=== PATIENT | female | born 1990 | race Caucasian/White ===

== ENCOUNTER 2022-08-19 11:45 | Emergency (ER) | payer OTHER, SELFPAY ==
--- NOTE | ~2022-08-19 | XR_ITS ---
EXAMINATION: XR chest 2V 08/19/2022 12:46 INDICATION: Cough, congestion and chills. PROCEDURE: 2 view chest COMPARISON: No prior studies for comparison. FINDINGS: The lungs are clear. The cardiomediastinal silhouette is within normal limits. There are no pleural effusions. There is no pneumothorax suspected. IMPRESSION: 1: NO ACUTE CARDIOPULMONARY DISEASE. Reviewed, dictated and finalized at location B.
[2022-08-19 11:57] VITALS: BP 139/85; PULSE 75; RESP 18; TEMP 35.8; O2SAT 98
[2022-08-19 11:58] VITALS: BP 139/85; PULSE 77; RESP 18; TEMP 35.8; O2SAT 98
--- NOTE | 2022-08-19 12:13 | PC.NURSE ---
LAB AND MOTHER AT BEDSIDE
--- NOTE | 2022-08-19 12:15 | ED.URI ---
HPI - URI/Sore Throat General Chief Complaint: Upper Respiratory Infection Stated Complaint: cough/sinus/ Time Seen by Provider: 08/19/22 11:48 Source: patient and RN notes reviewed Mode of arrival: ambulatory Limitations: no limitations History of Present Illness MD elicited complaint: cough Onset (ago): week(s) (2) Consistency: constant Severity: moderate Description of mucous: yellow Exacerbating factors: nothing Relieving factors: nothing Associated symptoms: shortness of breath Related Data Home Medications Medication Instructions Recorded Confirmed albuterol sulfate 90 mcg/actuation 2 puff inhalation PRN PRN Wheezing 08/19/22 08/19/22 aerosol inhaler alprazolam 0.5 mg tablet 0.5 mg PO TID PRN Anxiety 08/19/22 08/19/22 baclofen 10 mg tablet 10 mg PO BID 08/19/22 08/19/22 buprenorphine 8 mg-naloxone 2 mg 1 tablet sublingual TID 08/19/22 08/19/22 sublingual tablet ibuprofen 800 mg tablet 800 mg PO TID PRN Pain 08/19/22 08/19/22 potassium chloride 10 mEq 10 meq PO DAILY 08/19/22 08/19/22 capsule,extended release pregabalin 200 mg capsule 200 mg PO BID 08/19/22 08/19/22 Allergies Allergy/AdvReac Type Severity Reaction Status Date / Time amoxicillin [From Amoxil] Allergy Nausea and Verified 08/19/22 11:56 Vomiting erythromycin base Allergy Rash Verified 08/19/22 11:57 PMFSH Past Medical History Medical History (Updated 08/19/22 @ 13:04 by Sree Malin MD) Anxiety and depression Surgical History Surgical History (Updated 08/19/22 @ 12:17 by Sree Malin MD) History of carpal tunnel release Social History Social History (Updated 08/19/22 @ 12:19 by Sree Malin MD) Smoking packs per day: 1 Smoking cigarettes per day: 20.0 Smoking status: Current every day smoker Tobacco type: cigarettes Exam Const: General: healthy appearing, no acute distress and alert Nutritional Appearance: well nourished Orientation/consciousness: patient oriented x3 Limitations: no limitations Other: 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 HENMT: Head: normal to inspection Ears: external ears normal Eyes: Conjunctivae: conjunctivae normal Pupils: Equal, round and reactive pupils present EOM: EOMs intact bilaterally Neck: Neck: normal visual inspection Resp: Effort & Inspection: normal respiratory effort Auscultation: rhonchi throughout ( Scattered) and wheezes inspiratory wheezes ( mild scattered) Cardio: Rate: regular rate Rhythm: regular rhythm GI: GI Palp: Yes Soft to palpation and No Tenderness to palpation present (GI) Auscultation: normal bowel sounds Back/Spine/Pelvis: Cervical Spine: cervical ROM normal Thoracic/Lumbar Spine: thoraco-lumbar ROM normal Skin: General skin exam: normal color Rashes: no rashes Neuro: General: patient oriented x3, moves all extremities, no focal motor deficits and CN's II-XI intact bilaterally Speech: normal speech Gait exam (Neuro): Normal gait present Extrem: General: normal to inspection and no clubbing, cyanosis or edema Psych: Mental Status: mental status grossly normal Affect: normal affect Attitude: cooperative Course Vital Signs Vital signs: Vital Signs Temperature 35.8 C L 08/19/22 11:57 Pulse Rate 75 08/19/22 11:57 Respiratory Rate 18 08/19/22 11:57 Blood Pressure 139/85 08/19/22 11:57 Pulse Oximetry 98 08/19/22 11:57 Oxygen Delivery Room Air 08/19/22 11:57 Temperature 35.8 C L 08/19/22 11:58 Pulse Rate 77 08/19/22 11:58 Respiratory Rate 18 08/19/22 11:58 Blood Pressure 139/85 08/19/22 11:58 Pulse Oximetry 98 08/19/22 11:58 Oxygen Delivery Room Air 08/19/22 11:58 MDM - URI/Sore Throat Differential Diagnosis Differential diagnosis: Likely upper respiratory infection, viral infection and bronchitis Lab Data Attestation: I reviewed the patient's lab results. Discharge Plan Discharge Clinical Impression: Bronchitis Patient Disposition: Home, Self-Care Con
[2022-08-19 12:40] LABS: Basophils Absolute Auto 0.01 K/mm3 (0.00-0.10); Basophils Percent Auto 0.1 % (0.0-1.0); Eosinophils Absolute Auto 0.04 K/mm3 (0.02-0.50); Eosinophils Percent Auto 0.4 % (1.0-6.0); Hematocrit 38.3 % (35.0-49.0); Hemoglobin 12.5 g/dL (12.0-15.0); Immature Granulocyte Absolute 0.03 K/mm3 (0.00-0.00); Immature Granulocyte Percent A 0.3 % (0.0-0.0); Immature Platelet Fraction Pct 12.6 % (1.0-7.0); Lymphocytes Absolute Auto 1.71 K/mm3 (1.10-4.50); Lymphocytes Percent Auto 18.5 % (18.0-42.0); Mean Corpuscular HGB Conc 32.6 g/dL (32.0-36.0); Mean Corpuscular Volume 88.9 fL (78.0-102.0); Mean Platelet Volume 13.4 fl (9.2-11.8); Monocytes Absolute Auto 0.63 K/mm3 (0.10-0.90); Monocytes Percent Auto 6.8 % (2.0-11.0); Neutrophils Absolute Auto 6.8 K/mm3 (1.7-7.2); Neutrophils Percent Auto 73.9 % (50.0-70.0); Platelet Count Result 106 K/mm3 (150-420); Red Blood Count 4.31 M/mm3 (4.20-5.40); Red Cell Distribution Width 14.6 % (11.6-14.4); White Blood Count 9.2 K/mm3 (4.8-10.8)
[2022-08-19 12:55] LABS: Alanine Aminotransferase 25 U/L (14-59); Albumin Level 3.2 g/dL (3.4-5.0); Alkaline Phosphatase 56 U/L (46-116); Anion Gap 8 mmol/L (8-16); Aspartate Amino Transferase 21 U/L (15-37); Bilirubin,Total 0.3 mg/dL (0.00-1.00); Blood Urea Nitrogen 18 mg/dL (7-18); CRP 8.1 mg/dL (0.0-0.9); Calcium 8.7 mg/dL (8.5-10.1); Carbon Dioxide 25 mmol/L (21-32); Chloride 106 mmol/L (98-108); Estimated CRCL calculation 130 ml/min; Estimated Glomerular Filt Rate > 60; Glucose 130 mg/dL (70-99); Magnesium 1.9 mg/dL (1.8-2.4); Osmolality Calculated 291 mOsm/kg (285-295); Potassium 3.9 mmol/L (3.5-5.1); Sodium 139 mmol/L (136-145)
[2022-08-19 13:00] LABS: Lactic Acid Reflex 0.7 mmol/L (0.4-2.0)
[2022-08-19] MEDS: methylPREDNISolone SOD SUCC 125 MG VIAL IM (13:11)
[2022-08-19 13:12] VITALS: BP 130/77; PULSE 65; RESP 18; TEMP 36.2; O2SAT 99
--- NOTE | 2022-08-19 13:14 | PC.NURSE ---
ERP SPOKE WITH PT AND MOTHER. PT DENIES ANY NEEDS OR COMPLAINTS AT THIS TIME. PT TOLERATED INJECTION WITHOUT DIFFICULTY.
== END 2022-08-19 13:30 | disposition home or self-care (01) ==
PROVIDERS: Emergency Provider Emergency Medicine; PCP Family Medicine
DX: J40 Bronchitis, not specified as acute or chronic (principal)
CPT/HCPCS: 36415; 71046; 80053; 83605; 83735; 85025; 85055; 86140; 87040; 96372; 99283; J2930

== ENCOUNTER 2022-12-16 11:56 | Emergency (ER) | payer OTHER, SELFPAY ==
[2022-12-16 11:57] VITALS: BP 140/81; PULSE 77; RESP 16; TEMP 36.9; O2SAT 97
--- NOTE | 2022-12-16 11:58 | ED.DENTAL ---
HPI - Dental/Oral General Chief complaint: Dental/Oral Stated complaint: Tooth pain Time Seen by Provider: 12/16/22 11:58 Source: patient and RN notes reviewed Mode of arrival: ambulatory Limitations: no limitations History of Present Illness Complaint: tooth pain Location: Tooth # (17) Onset (ago): week(s) (3) Duration: intermittent Severity: moderate Relieving factors: nothing Exacerbating factors: chewing Context: history of dental caries Associated symptoms: other ( Pruritus no rash) Treatment prior to arrival: none Related Data Home Medications Medication Instructions Recorded Confirmed albuterol sulfate 90 mcg/actuation 2 puff inhalation PRN PRN Wheezing 08/19/22 12/16/22 aerosol inhaler alprazolam 0.5 mg tablet 0.5 mg PO TID PRN Anxiety 08/19/22 12/16/22 buprenorphine 8 mg-naloxone 2 mg 1 tablet sublingual TID 08/19/22 12/16/22 sublingual tablet ibuprofen 800 mg tablet 800 mg PO TID PRN Pain 08/19/22 12/16/22 pregabalin 200 mg capsule 200 mg PO BID 08/19/22 12/16/22 diclofenac sodium 50 mg 150 mg PO DAILY 12/16/22 12/16/22 tablet,delayed release prazosin 2 mg capsule 2 mg PO HS 12/16/22 12/16/22 Allergies Allergy/AdvReac Type Severity Reaction Status Date / Time amoxicillin [From Amoxil] Allergy Nausea and Verified 12/16/22 12:05 Vomiting erythromycin base Allergy Rash Verified 12/16/22 12:05 Review of Systems Review of Systems: All systems reviewed & are unremarkable except as noted in HPI and below PMFSH Past Medical History Medical History Anxiety and depression Surgical History Surgical History History of carpal tunnel release Social History Social History Smoking packs per day: 1 Smoking cigarettes per day: 20.0 Smoking status: Current every day smoker Tobacco type: cigarettes Exam Const: General: healthy appearing, no acute distress and alert Nutritional Appearance: well nourished Orientation/consciousness: patient oriented x3 Limitations: no limitations 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 HENMT: Head: normal to inspection Ears: external ears normal Face/Nose/Sinus: Normal external nose present Face and sinus: normal facial exam Mouth: Yes moist mucous membranes Teeth and gingiva: poor dentition Teeth image: 1. Evidence of cavity with surrounding tenderness mild erythema no significant swelling Throat: posterior oropharynx normal Eyes: Conjunctivae: conjunctivae normal Pupils: Equal, round and reactive pupils present EOM: EOMs intact bilaterally Neck: Neck: normal visual inspection Resp: Effort & Inspection: normal respiratory effort Auscultation: clear to auscultation bilaterally Cardio: Rate: regular rate Rhythm: regular rhythm GI: GI Palp: Yes Soft to palpation and Yes Tenderness to palpation present (GI) Auscultation: normal bowel sounds Back/Spine/Pelvis: Cervical Spine: cervical ROM normal Thoracic/Lumbar Spine: thoraco-lumbar ROM normal Skin: General skin exam: normal color Rashes: no rashes Neuro: General: patient oriented x3, moves all extremities, no focal motor deficits and CN's II-XI intact bilaterally Speech: normal speech Gait exam (Neuro): Normal gait present Extrem: General: normal to inspection and no clubbing, cyanosis or edema Psych: Mental Status: mental status grossly normal Affect: normal affect Attitude: cooperative Course Vital Signs Vital signs: Vital Signs Oxygen Delivery Room Air 12/16/22 11:56 Temperature 36.9 C 12/16/22 11:57 Pulse Rate 77 12/16/22 11:57 Respiratory Rate 16 12/16/22 11:57 Blood Pressure 140/81 12/16/22 11:57 Pulse Oximetry 97 12/16/22 11:57 Oxygen Delivery Room Air 12/16/22 11:57 Discharge Plan Discharge Clinical Impression: Pain, dental Patient Disposition:
== END 2022-12-16 12:15 | disposition home or self-care (01) ==
PROVIDERS: Emergency Provider Emergency Medicine
DX: K08.89 Other specified disorders of teeth and supporting structures (principal); F17.210 Nicotine dependence, cigarettes, uncomplicated; Z79.1 Long term (current) use of non-steroidal anti-inflammatories (NSAID)
CPT/HCPCS: 99283